=== PATIENT | female | born 1970 | race Caucasian/White ===

== ENCOUNTER → 2016-11-17 | Outpatient (CLI) | payer BC | LOC: PT 08:06 → EDSTATUS 10:42 ==

== ENCOUNTER 2016-12-08 07:58 | Outpatient (RCR) | payer BC | END 2017-03-08 | disposition home or self-care (01) | LOC: PT | DX: M75.22 Bicipital tendinitis, left shoulder (principal) ==

== ENCOUNTER 2017-03-09 08:06 | Outpatient (RCR) | payer BC | END 2017-03-16 07:42 | disposition home or self-care (01) | LOC: PT 08:06 | DX: Z47.89 Encounter for other orthopedic aftercare (principal); M24.112 Other articular cartilage disorders, left shoulder; M65.812 Other synovitis and tenosynovitis, left shoulder; M75.02 Adhesive capsulitis of left shoulder; M25.512 Pain in left shoulder ==

== ENCOUNTER → 2018-09-28 | Outpatient (CLI) | payer BC | LOC: RAD 09:48 | DX: M61.411 Other calcification of muscle, right shoulder (principal) ==

== ENCOUNTER 2019-01-27 09:30 | Outpatient (RCR) | payer BC | END 2019-01-29 | disposition home or self-care (01) | LOC: PT | DX: Z47.89 Encounter for other orthopedic aftercare (principal) ==

== ENCOUNTER 2019-03-06 09:00 | Outpatient (RCR) | payer BC | END 2019-03-06 09:30 | disposition still patient (30) | LOC: PT 09:00 | DX: Z47.1 Aftercare following joint replacement surgery (principal); Z96.611 Presence of right artificial shoulder joint ==